=== PATIENT | female | born 1955 | race Caucasian/White ===

== ENCOUNTER 2018-03-30 06:18 | Observation (INO) | payer BC, OTHER ==
[~2018-03-30 06:18] MED LIST: Buffered Lidocaine 0.9% SYRIN* 5 ML/SYR SYRINGE INTRADERM ONE; Dexamethasone IV* 4 MG/ML 1 ML (4 MG) IV SLOW PU ONE; Famotidine IV* 10 MG/ML 2 ML (20 mg) IV ONE; Levalbuterol 0.63MG/3ML NEB* UNIT OF USE INH ONE; Scopolamine 1.5 mg* PATCH TRANSDERM SCH
[2018-03-30] MEDS ORDERED: Clindamycin 900 MG IVPREMIX(* 900 MG/50 ML SDV IV ONE (06:44)
[2018-03-30] MEDS ORDERED: Dexamethasone IV* 4 MG/ML 1 ML (4 MG) ONE (06:44)
[2018-03-30] MEDS ORDERED: Scopolamine 1.5 mg* PATCH ONE (06:44)
[2018-03-30] MEDS ORDERED: Famotidine IV* 10 MG/ML 2 ML (20 mg) ONE (06:44)
[2018-03-30] MEDS ORDERED: Levalbuterol 0.63MG/3ML NEB* UNIT OF USE INH ONE (06:44)
[2018-03-30] MEDS ORDERED: Buffered Lidocaine 0.9% SYRIN* 5 ML/SYR SYRINGE ONE (06:44)
[2018-03-30] MEDS ORDERED: Midazolam* 1 MG/ML 5 ML VIAL (5 MG) ONE (07:03)
[2018-03-30] MEDS ORDERED: fentaNYL* 50 MCG/ML 5 ML VIAL (250 MCG VIAL) ONE (07:03)
[2018-03-30] MEDS ORDERED: Propofol* 10 MG/ML 20 ML BTL IV PUSH ONE (07:03)
[2018-03-30] MEDS ORDERED: Lidocaine 2% PF * 5 ML VIAL ONE (07:03)
[2018-03-30] MEDS ORDERED: Atracurium* 10 MG/ML 10 ML VIAL ONE (07:04)
[2018-03-30] MEDS ORDERED: Phenylephrine INJ* 10 MG/ML 1 ML VIAL (10 MG) ONE (07:06)
[2018-03-30] MEDS ORDERED: Thrombin 5,000 UNITS* 1 APPLIC KIT - topical use - TOPICAL ONE ×2 (07:20→08:37)
[2018-03-30] MEDS ORDERED: Lidocaine 1% MPF wEPI 200,000* 30 ML SDV ONE (07:20)
[2018-03-30] MEDS ORDERED: Bacitracin IV* 50,000 UNITS INJ ONE (07:20)
[2018-03-30] MEDS ORDERED: fentaNYL* 50 MCG/ML 2 ML VIAL (100 MCG VIAL) ONE ×4 (08:10→12:08)
[2018-03-30] MEDS ORDERED: Naloxone* 0.4 MG/ML 1 ML VIAL IV PRN (09:24)
[2018-03-30] MEDS ORDERED: DiMENhydriNATE IV* 50 MG/ML VIAL IV PUSH PRN (09:24)
[2018-03-30] MEDS ORDERED: Ondansetron INJ* 2 MG/ML VIAL IV PRN (09:24)
[2018-03-30] MEDS ORDERED: HYDROmorphone INJ* 1 MG/ML CARPUJECT SYRINGE IV PRN (09:24)
[2018-03-30] MEDS ORDERED: Levalbuterol 0.63MG/3ML NEB* UNIT OF USE INH PRN (09:24)
[2018-03-30] MEDS ORDERED: Metoprolol Tartrate IV* 1 MG/ML 5 ML VIAL ONE (11:20)
--- NOTE | 2018-03-30 11:22 | RAD ---
INDICATION: Anterior cervical discectomy with fusion COMPARISON: None A crosstable lateral view is obtained at 0757 hours for operative control and shows multilevel degenerative disc disease with endplate sclerosis and marginal osteophyte formation. The second crosstable lateral image obtained at 0812 hours shows retractors in place with a metallic probe projected over the disc space at C4-C5. A third image obtained at 1040 hours shows completion of anterior cervical fusion at C4-C7.
[2018-03-30] MEDS ORDERED: Magnesium Hydroxide LIQ* 30 ML UDC PO PRN (11:26)
[2018-03-30] MEDS ORDERED: Ondansetron 40 MG VIAL* 2 MG/ML 20 ML VIAL IV PRN (11:26)
[2018-03-30] MEDS ORDERED: Mouth Piece, Nicotine* 1 EACH CARTRIDGE INH PRN (11:29)
[2018-03-30] MEDS ORDERED: Nicotine Inhaler* 10 MG AMP INH PRN (11:29)
[2018-03-30] MEDS ORDERED: Zolpidem TAB* 10 MG PO PRN (11:34)
[2018-03-30] MEDS: fentaNYL* 50 MCG/ML 2 ML VIAL (100 MCG VIAL) IV PRN ×2 (12:08→13:30)
[2018-03-30] MEDS ORDERED: TOPIRAMATE 50 MG PO SCH (14:00)
[2018-03-30] MEDS ORDERED: Dextrose 50% Syringe 50 ML* 25 GM/50 ML SYRINGE IV PUSH PRN (16:40)
[2018-03-30] MEDS ORDERED: cloNIDine 0.1 MG PATCH* 0.1 MG/24 HR 7 DAY PATCH SCH (17:00)
[2018-03-30] MEDS: Baclofen TAB* 10 MG PO SCH ×2 (17:27→20:55)
[2018-03-30] MEDS: Acetaminophen TAB* 325 MG PO PRN ×2 (17:58→21:54)
[2018-03-30] MEDS ORDERED: DULoxetine DR CAP* 60 MG CAP.DR PO SCH (18:00)
[2018-03-30] MEDS: Insulin LISPRO* 1 UNITS UNIT SUBCUT SCH (19:56)
[2018-03-30] MEDS ORDERED: Topiramate TAB(*) 25 MG PO SCH (21:00)
[2018-03-30] MEDS ORDERED: ZONISAMIDE 100 MG PO SCH (21:00)
--- NOTE | 2018-03-30 22:25 | CONS ---
CC: Dr. Bebe Matute; Dr. Esquivel * CONSULTATION REPORT: DATE OF CONSULT: 03/30/18 PRIMARY CARE PROVIDER: Dr. Bebe Matute. NEUROSURGEON: Dr. Esquivel. REASON FOR CONSULT: Medical comanagement. HISTORY OF PRESENT ILLNESS: Ms. Bridges is a 62-year-old female, who underwent anterior cervical diskectomy and fusion with Dr. Esquivel n 03/30/18. The hospitalist service was asked to see Ms. Bridges for management of her chronic medical condition including hypertension, hyperlipidemia, COPD, and diet- controlled diabetes. The patient currently states that her pain is significant and she is requesting some pain medication at this point. She otherwise has no complaints. She has no nausea. She is filling out her menu currently. She questions when she will be able to go tomorrow. She hopes that it is earlier in the day. PAST MEDICAL HISTORY: 1. History of cervical cancer and ovarian cancer status post hysterectomy and oophorectomy. 2. Hyperlipidemia. 3. Hypertension. 4. Coronary artery disease. 5. Anxiety. 6. COPD. 7. 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 PAST SURGICAL HISTORY: 1. Cholecystectomy. 2. Rotator cuff repair. 3. Eye surgery. 4. Left arm surgery. 5. Tubal ligation. 6. Bone graft. 7. Colposcopy. 8. LEEP. 9. Hysterectomy. 10. Oophorectomy. 11. Cataract removal. CURRENT MEDICATIONS: 1. Tylenol 650 mg p.o. q.4 hours p.r.n. pain. 2. Amlodipine 2.5 mg p.o. daily. 3. Lipitor 80 mg p.o. daily. 4. Baclofen 10 mg p.o. t.i.d. 5. Clonidine 0.1 mg patch topically weekly. 6. Nicotine inhaler q.2 hours p.r.n. craving. 7. Duloxetine 30 mg p.o. q.a.m., 60 mg p.o. q.p.m. 8. LR 125 mL per hour until 1700 today followed by LR at 75 mL per hour. 9. MOM 30 mL p.o. daily p.r.n. constipation. 10. Naloxone 0.8 mg IV q.2 minutes p.r.n. respiratory depression. 11. Zofran 4 mg IV q.6 hours p.r.n. nausea. 12. Nicotine patch 21 mg per 24 hours topically daily. 13. Scopolamine one patch topically q.72 hours. 14. Topamax 150 mg p.o. q.h.s. 15. Ambien 10 mg p.o. q.h.s. p.r.n. insomnia. ALLERGIES: CODEINE and PENICILLIN. FAMILY HISTORY: The patient's mom secondary to breast cancer. She also had lung cancer. Dad of old age. The patient has a sister, who also had a history of breast cancer and ovarian cancer, as well as kidney cancer. SOCIAL HISTORY: The patient smokes every day, but recently was started on nicotine patch and has not been smoking since. She denies any alcohol use. She is . She lives with her . She is disabled. REVIEW OF SYSTEMS: A complete 11 system review of systems was obtained. Pertinent positives and negatives are as per HPI and otherwise negative. PHYSICAL EXAM: Blood pressure 141/56, pulse 52, respirations 18, temp 97.9, O2 sat 98% on 3 L. General: The patient is a well-developed, middle-aged female seen sitting up in the bed, in no acute distress. HEENT: Pupils are equal and round. Extraocular muscles are intact. Oropharynx is clear. The patient has a clean, dry dressing noted to the anterior neck with a ASIYA drain present with some blood noted within the bulb of the drain. Cardiac: Normal S1 and S2. Regular rate and rhythm. I do not appreciate any murmurs. Pulmonary: Lungs are clear to auscultation bilaterally, though breath sounds are diminished throughout. Abdomen: Bowel sounds present. Abdomen is soft, nontender, and nondistended. Musculoskeletal: The patient moves all 4 extremities symmetrically. There are no obvious joint deformities. Skin is warm and dry. There are no rashes. Neuro: Cranial nerves II through XII are grossly intact. Sensation is intact to light touch throughout. Strength is not tested at this time. Psych: The patient is alert. She is oriented x3. Affect appears appropriate. DIAGNOSTIC STUDIES/LAB DATA: Glucose 172. ASSESSMENT AND PLAN: Ms. Bridges is a 62-year-old female with a history of hypertension, type 2 diabetes that is currently being managed with diet alone, heart disease, anxiety, and chronic obstructive pulmonary disease, who presents to [facility] following elective anterior cervical diskectomy and fusion at C4-5, C5-6 , and C6-7. 1. Anterior cervical diskectomy with fusion at C4-5, C5-6, and C6-7: Management per Neurosurgery. 2. Hypertension: The patient's blood pressure has been moderately elevated though she is having a significant amount of pain at this time. She will continue with her usual clonidine patch, amlodipine 2.5 mg daily. If the patient's blood pressure does not improve with improved pain control, this can be increased to 5 mg daily. 3. Hyperlipidemia: We will continue statin. 4. Chronic obstructive pulmonary disease: There are no signs of exacerbation at this time. She will continue on nicotine replacement therapy for her history of ongoing tobacco abuse. 5. Anxiety: We will continue Xanax, Topamax, and duloxetine. 6. Reflex sympathetic dystrophy: Continue Zonegran. 7. Type 2 diabetes: The patient will be placed on blood glucose monitoring. Fingersticks a.c., h.s. with lispro sliding scale coverage. Additionally tomorrow, hemoglobin A1c will be obtained to evaluate her overall diabetes control as an outpatient. The patient states that she was recently taken off her metformin though her supposed fasting blood sugar this morning was elevated at 172. 8. DVT prophylaxis: Per Neurosurgery. 9. Code status is full. TIME SPENT: Forty-five minutes were spent on this consultation. [id number]/[facility] #: [id number] RANI
[2018-03-31 04:56] LABS: Hematocrit 41 % (35-47); Hemoglobin 14.2 g/dl (12.0-16.0); Mean Corpuscular HGB Conc 34 g/dl (31-36); Mean Corpuscular Hemoglobin 32 pg (27-31); Mean Corpuscular Volume 93 fL (80-97); Platelet Count 175 10^3/ul (150-450); Red Blood Count 4.45 10^6/ul (4.00-5.40); Red Cell Distribution Width 14 % (10.5-15); White Blood Count 10.1 10^3/ul (3.5-10.8)
[2018-03-31] MEDS: Acetaminophen TAB* 325 MG PO PRN (05:10)
[2018-03-31 05:14] LABS: EGFR Non-African American 73.3 (>60)
--- NOTE | 2018-03-31 07:40 | PN ---
Progress Note - Progress Note Date of Service: 03/31/18 SOAP: Subjective: []POD # 1 Doing well Some mild swallowing difficulty Has ambulated,voided Objective: []Neuro intact Assessment: []Satis post op course Plan: []Doing well D/C Instructions given
[2018-03-31 08:07] VITALS: BP 154/73
[2018-03-31] MEDS: Insulin LISPRO* 1 UNITS UNIT SUBCUT SCH (08:08)
[2018-03-31] MEDS ORDERED: Atorvastatin* 80 MG TAB PO SCH (09:00)
[2018-03-31] MEDS ORDERED: Nicotine PATCH 21 MG/24 HR* PATCH TRANSDERM SCH (09:00)
[2018-03-31] MEDS ORDERED: DULoxetine DR CAP* 30 MG CAP.DR PO SCH (09:00)
[2018-03-31] MEDS ORDERED: amLODIPine TAB* 5 MG PO SCH (09:00)
[2018-03-31] MEDS ORDERED: Nicotine Patch Removal NOTE PATCH OFF SCH (21:00)
--- NOTE | 2018-04-06 05:04 | DS ---
DISCHARGE SUMMARY: DATE OF ADMISSION: 03/30/18 DATE OF DISCHARGE: 03/31/18 ATTENDING PHYSICIAN: Dr. Angelo Esquivel * (DICTATED BY EMERSON CAGE) DISCHARGE DIAGNOSES: 1. 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 2. Cervical spondylosis. 3. Hypertension. 4. Hyperlipidemia. 5. Chronic obstructive pulmonary disease. 6. Complex regional pain syndrome, right upper extremity. 7. Anxiety. 8. Coronary artery disease. SPECIAL PROCEDURES: Anterior cervical diskectomy and infusion C4-C5, C5-C6 and C6- C7. HOSPITAL COURSE: This 62-year-old female was seen in the office with cervical radiculopathy and neck pain. She failed to improve with therapies and medications and was therefore referred for neurosurgical consultation. She elected to proceed with surgical intervention. On the day of admission, she was taken to surgery where under general anesthesia and anterior cervical diskectomy and infusion at C4- C5, C5-C6, and C6-C7 operation was carried out. Postoperatively, the preoperative symptoms were improving. Hospitalist Medicine consulted for medical co-management of her health issues. Pain controlled with oral pain medications. On the first postoperative day, she was discharged home to the care of her . At this time, she was eating soft foods and drinking liquids without difficulty. She was ambulating independently and the wound drain had been discontinued. FOLLOWUP: This patient will be seen in the office in approximately 2 weeks for followup. DISCHARGE MEDICATIONS: No discharge medications. DISCHARGE INSTRUCTIONS: Activity level and wound care were discussed with the patient and information on this was provided. EMERSON CAGE [id number]/[facility] #: [id number] MTDAmbika
--- NOTE | 2018-04-08 00:21 | OP ---
DATE OF OPERATION: 03/30/18 - ROOM #332 DATE OF : 51 SURGEON: Angelo Esquivel MD [employer] INSPECTOR: EMERSON Trevino ANESTHESIA: General. PRE-OP DIAGNOSIS: Herniated nucleus pulposus at C4-5, cervical spondylosis C5-6 , C6-7. POST-OP DIAGNOSIS: Herniated nucleus pulposus at C4-5, cervical spondylosis C5- 6, C6-7. OPERATIVE PROCEDURE: Anterior cervical discectomy and fusion, C4-5, C5-6, C6-7 with placement of biomechanical device at C4-5, C5-6, C6-7 with anterior instrumentation. DESCRIPTION OF PROCEDURE: After satisfactory general anesthesia was obtained, the patient was placed on the operating table in the supine position with the head supported on the horseshoe headrest and the neck slightly extended. The anterior aspect of the neck was then clipped, prepped and draped in a sterile manner for an anterior cervical exposure. The skin incision was outlined over the C5-C6 vertebral body assisted with a collar separator radiograph. The incision was begun at the midline, extended to the right side a distance of 3 cm. This incision was infiltrated with 1% Xylocaine with epinephrine, after which it was turned down sharply to the subcutaneous tissues. A superior and inferiorly based subcutaneous flap was then fashioned and the platysmal muscle divided along the direction of its fibers. Utilizing a combination of sharp and blunt dissection, a dissection plane was carried out between the sternocleidomastoid and strap muscles down to the anterior aspect of the spine. An intraoperative x -ray was obtained verifying proper interspace localization, after which the initial approach was done at the C4-5 level. An anterior osteophyte was decompressed at this level, after which the anterior two-thirds of the disk material was removed with a combination of the Midas Min drill, angled curettes , and pituitary rongeurs. Coleman distractor pins were then placed in C4 and C5 vertebral bodies and gentle disk space distraction applied. The operating microscope was brought into the field and the remainder of the procedure done under microscopic visualization. Projecting posteriorly at this level was a disk herniation. Multiple fragments of disks were removed and the dissection was carried back until normal dura was encountered. At the conclusion of the decompression, a nerve hook would go out readily with both C5 nerve roots. A Medtronic PEEK graft was then selected and filled with bony matrix and slightly countersunk at this level. Attention was directed to the C5-C6 level, where a much larger anterior osteophyte was decompressed. The anterior two-thirds of disk material was removed from this level and Coleman distractor pins were placed in the C5 and C6 vertebral bodies. Gentle disk space distraction was applied and utilizing the Midas Min drill and Kerrison rongeurs, a large spur projecting primarily off the superior aspect of the C6 vertebral body was decompressed. This was carried back until normal dura was encountered. At the conclusion of the decompression, a nerve hook would go out readily with both C6 nerve roots. A Medtronic PEEK graft was then selected and filled with bony matrix and slightly countersunk at this level. In a similar manner, a large osteophyte was removed at C6-C7, after which Coleman distractor pins were placed and gentle disk space distraction applied. The C6-C7 level was practically autofused and the anterior two-thirds of disk and spur were removed with the Midas Min drill, angled curettes and pituitary rongeurs. At this level, there was a large spur projecting predominantly out of the superior aspect of C7, which was decompressed. At the conclusion of the decompression, a nerve hook would go out readily with both C7 nerve roots. A Medtronic PEEK cage was selected and slightly countersunk to get this level. A Medtronic Zevo plate was then selected to span from C4 to C7. The curve of this exposure allowed for 13-mm screws to be placed in the C4 and C7 vertebral bodies with 17-mm screws placed in the C5 and C6 vertebral bodies. A post-construct x-ray showed good screw and graft placement. The wound was then thoroughly irrigated, after which a drain was placed in the prevertebral space and tunnelled out toward the right side. The subcutaneous tissues were then reapproximated with 3-0 Vicryl and the skin closed with Steri-Strips. The estimated blood loss was less than 50 cc and the final sponge, padding, and needle counts were correct. The patient was taken to Recovery, extubated, and in stable condition. [id number]/[facility] #: [id number] [address] HOSPITALAmbika
== END 2018-03-31 09:30 | disposition home or self-care (01) ==
LOC: OR 06:18 → SSU 14:39
PROVIDERS: ADMIT Neurological Surgery; ATTEND Neurological Surgery
PROC: 0RG20A0 Fusion of 2 or more Cervical Vertebral Joints with Interbody Fusion Device, Anterior Approach, Anterior Column, Open Approach (ICD-10-PCS; 2018-03-30)
PROC: 0RG20J1 Fusion of 2 or more Cervical Vertebral Joints with Synthetic Substitute, Posterior Approach, Posterior Column, Open Approach (ICD-10-PCS; 2018-03-30)
PROC: 0RB30ZZ Excision of Cervical Vertebral Disc, Open Approach (ICD-10-PCS; principal; 2018-03-30 07:30)
DX: M50.121 Cervical disc disorder at C4-C5 level with radiculopathy (principal); M47.892 Other spondylosis, cervical region; I10 Essential (primary) hypertension; E78.5 Hyperlipidemia, unspecified; J44.9 Chronic obstructive pulmonary disease, unspecified; G90.50 Complex regional pain syndrome I, unspecified; I25.10 Atherosclerotic heart disease of native coronary artery without angina pectoris; F41.9 Anxiety disorder, unspecified; Z79.899 Other long term (current) drug therapy; Z88.0 Allergy status to penicillin; Z88.5 Allergy status to narcotic agent
CPT/HCPCS: 36415; 72020; 80048; 83036; 85027; A9270-GY; C1713; C1776; C9359; G0378; J1100; J2001; J2250; J2704; J3010; J3490